=== PATIENT | female | born 1975 | race Caucasian/White ===

== ENCOUNTER → 2022-08-01 13:10 | Outpatient (BNVA) | payer MEDICARE, MEDICAID, SELFPAY | PROVIDERS: Visit Provider Psychiatry & Neurology Psychiatry | DX: F33.9 Major depressive disorder, recurrent, unspecified (principal) | CPT/HCPCS: Q3014 ==

== ENCOUNTER → 2022-10-03 13:51 | Outpatient (BNVA) | payer MEDICARE, MEDICAID, SELFPAY | PROVIDERS: Visit Provider Psychiatry & Neurology Psychiatry | DX: F33.9 Major depressive disorder, recurrent, unspecified (principal); F43.12 Post-traumatic stress disorder, chronic; Z98.84 Bariatric surgery status | CPT/HCPCS: 99212 ==

== ENCOUNTER → 2023-01-07 15:47 | Outpatient (BNVA) | payer MEDICARE, MEDICAID, SELFPAY | PROVIDERS: Visit Provider Psychiatry & Neurology Psychiatry | DX: F43.12 Post-traumatic stress disorder, chronic (principal); F33.9 Major depressive disorder, recurrent, unspecified; Z98.84 Bariatric surgery status | CPT/HCPCS: 90833; Q3014 ==

== ENCOUNTER 2023-02-20 16:43 | Outpatient (AMB) | payer MEDICARE, MEDICAID, SELFPAY ==
--- NOTE | 2023-02-20 16:35 | MHC.OFFVISPS ---
Intake Intake Visit Reasons: depression Allergies No Known Allergies Allergy (Unverified 04/27/20 16:41) Medication List - Last Reconciled 03/02/23 by Wyatt Harmon MD acarbose 100 mg PO TID bupropion HCl 150 mg PO DAILY 90 days buspirone 30 mg PO BID duloxetine 120 mg (2 x 60 mg) PO DAILY esomeprazole magnesium (Nexium) 40 mg PO DAILY glucagon (Glucagon Emergency Kit) 1 mg IM ONCE PRN lamotrigine 150 mg PO BID levothyroxine 137 mcg PO DAILY lorazepam 0.5 mg PO DAILY PRN losartan 25 mg PO DAILY pregabalin 150 mg PO TID quetiapine 12.5 - 25 mg (0.5 - 1 x 25 mg) PO TID PRN sumatriptan succinate mg subcut topiramate 100 mg PO BID HPI- Psychiatric Chief Complaint: depression HPI Narrative: Patient has been increasingly anxious and depressed in relationship to inability to stabilize secondary to reactive hypoglycemia status post surgery. Patient has had multiple hypoglycemic event significantly impacting with her life. She did feel transiently self-harming but states she would not do that ever because of her daughter. She does find Seroquel helpful as needed Rexulti 3 mg Cymbalta 120 Past Psychiatric History: hx recurrent depression anxiety past ect disability past hx of suicide attempts Mental Status Exam Mental Status Exam Patient Appearance: Well Grooomed Patient Orientation: Person, Place, Time and Situation Level of Consciousness: Awake and Appropriate Patient Behavior: Appropriate Mood Description: Depressed, Anxious and Apprehensive Affect Description: Appropriate, Constricted and Apprehensive Patient Cognition Impaired: No Ability to Follow Directions: Good Speech Pattern: Clear Memory Description: Intact Hallucinations: None Delusions: Not Present Thought Process: Intact and Goal Oriented Thought Content: positive for Goal Oriented, positive for Perseveration, positive for Preoccupation and negative for Homicidal Ideation Depressive Symptoms: Increased Anxiety, Increased Irritability, Hopelessness, Unhappiness, Increased Fatigue, Thoughts of /Suicide, Loss of Energy and Difficulty Concentrating Judgement: Fair Judgement and Insight: Denies active SI feels overwhelmed some thoughts of self-harm at times has been using Seroquel p.r.n. which has been helpful patient has other strategies which she knows she needs to resume difficulty given that she cannot drive and often cannot be left alone until this is managed Telehealth Telehealth Location of provider rendering services: practice address Location of patient: address on file Patient Identification confirmed using: Name, : Yes Telehealth method: video Patient verbally consented to treatment: Yes Patient verbally consented to billing insurance company: Yes Minutes spent on Phone/Video with Pt.: 23 Assessment and Plan Assessment & Plan (1) Chronic post-traumatic stress disorder (PTSD): Status: Acute Code(s): F43.12 - Post-traumatic stress disorder, chronic (2) Major depression, recurrent, chronic: Status: Acute Code(s): F33.9 - Major depressive disorder, recurrent, unspecified (3) Status post gastric bypass for obesity: Status: Acute Code(s): Z98.84 - Bariatric surgery status (4) Hypoglycemia after GI (gastrointestinal) surgery: Status: Acute Code(s): K91.2 - Postsurgical malabsorption, not elsewhere classified Plan Lower Wellbutrin given increased anxiety Seroquel p.r.n. added for help with anxiety self-harming impulses patient does have a therapist she has a connect relationship to does have strategies to manage behavior and thoughts we have discussed option of spravato in TMS limited availability on [facility] patient can do PHP remotely if needed might benefit from DBT group patient states she does feel like she has regrouped she is dealing with significant medical side effects severe reactive hypoglycemia status post gastric bypass surgery Medications: Changed From bupropion HCl 150 mg PO BID 90 days 180 tabs 1RF To bupropion HCl 150 mg PO DAILY 90 tabs 1RF 90 days Counseling and coordination of Care Details-Self Mgmt counseling: Extensive discussion regarding strategies Medication management counseling: Effectiveness Details-Med Mgmt counseling: No evidence of oral facial dyskinesia patient aware of tardive dyskinesia risk There was some question of a seizure possibly secondary to hypoglycemia neurologist was not clear we discussed lowering Wellbutrin because of lowered seizure threshold Details: I spent [30] minutes reviewing the record, seeing the patient and documenting in the medical record. Counseling provided to the patient/caregiver as outlined below. Addressed patient/caregiver concerns regarding current medication regime including effective adherence. Addressed patient/caregiver concerns regarding diagnosis and prognosis including accuracy of diagnosis, prognosis over time, impact of diagnosis. Addressed patient/caregiver concerns regarding impact of recent stressors. [facility] Medical History (Updated 03/02/23 @ 19:20 by Wyatt Harmon MD) Chronic post-traumatic stress disorder (PTSD) Surgical History (Updated 10/21/22 @ 22:13 by Wyatt Harmon MD) Status post gastric bypass for obesity Social History: parents 1 b 1 sister mother cancer in january 30 the patient is x1 and she is in her 2nd marriage and lives in [facility]. Her 1st who is the father of her 19-year-old daughter had problems with substance abuse. 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
== END 2023-02-20 17:55 | disposition home or self-care (01) ==
LOC: HO.HOP 16:43
PROVIDERS: Visit Provider Psychiatry & Neurology Psychiatry
DX: F43.12 Post-traumatic stress disorder, chronic (principal); F33.9 Major depressive disorder, recurrent, unspecified; Z98.84 Bariatric surgery status; K91.2 Postsurgical malabsorption, not elsewhere classified
CPT/HCPCS: 99214

== ENCOUNTER → 2023-02-20 16:43 | Outpatient (BNVA) | payer MEDICARE, MEDICAID, SELFPAY | PROVIDERS: Visit Provider Psychiatry & Neurology Psychiatry | DX: F33.9 Major depressive disorder, recurrent, unspecified (principal); F43.12 Post-traumatic stress disorder, chronic; K91.2 Postsurgical malabsorption, not elsewhere classified; Z98.84 Bariatric surgery status | CPT/HCPCS: 99212 ==

== ENCOUNTER 2023-08-29 14:14 | Outpatient (AMB) | payer MEDICARE, MEDICAID, SELFPAY ==
--- NOTE | 2023-08-29 16:55 | MHC.OFFVISPS ---
Intake Intake Visit Reasons: depression Allergies No Known Allergies Allergy (Unverified 04/27/20 16:41) HPI- Psychiatric Chief Complaint: depression HPI Narrative: pt seen in psych f/u telehealth appt mood has been better since being on new medication and having glucose measurements doing well with her daughter needs to be more active and engaged with things no si rexulti 1 mg Past Psychiatric History: hx recurrent depression anxiety past ect disability past hx of suicide attempts Mental Status Exam Mental Status Exam Patient Appearance: Well Grooomed Patient Orientation: Person, Place, Time and Situation Level of Consciousness: Awake and Appropriate Patient Behavior: Appropriate Mood Description: Depressed (mild) and Anxious Affect Description: Appropriate, Constricted and Apprehensive Patient Cognition Impaired: No Ability to Follow Directions: Good Speech Pattern: Clear Memory Description: Intact Hallucinations: None Delusions: Not Present Thought Process: Intact and Goal Oriented Thought Content: positive for Goal Oriented, positive for Perseveration, positive for Preoccupation, negative for Suicidal Ideation or negative for Homicidal Ideation Depressive Symptoms: Increased Anxiety, Loss of Energy and Difficulty Concentrating Judgement: Fair Judgement and Insight: Denies active SI feels overwhelmed some thoughts of self-harm at times has been using Seroquel p.r.n. which has been helpful patient has other strategies which she knows she needs to resume difficulty given that she cannot drive and often cannot be left alone until this is managed Telehealth Telehealth Location of provider rendering services: practice address Location of patient: address on file Patient Identification confirmed using: Name, : Yes Telehealth method: video Patient verbally consented to treatment: Yes Patient verbally consented to billing insurance company: Yes Minutes spent on Phone/Video with Pt.: 20 Assessment and Plan Assessment & Plan (1) Chronic post-traumatic stress disorder (PTSD): Status: Acute Code(s): F43.12 - Post-traumatic stress disorder, chronic (2) Hypoglycemia after GI (gastrointestinal) surgery: Status: Acute Code(s): K91.2 - Postsurgical malabsorption, not elsewhere classified (3) Major depression, recurrent, chronic: Status: Acute Code(s): F33.9 - Major depressive disorder, recurrent, unspecified Plan lower rexulti 1 mg daily cont wellbutrin cymbalta mood improved cont plan of care pt in tx knows to contact this writer technical publications if eeling worse no evidence of movement dx on telehealth Medications: Changed From brexpiprazole 2 mg PO DAILY 90 tabs 1RF To brexpiprazole (Rexulti) 1 mg (1/2 x 2 mg) PO DAILY 90 tabs 1RF Refilled bupropion HCl 150 mg PO BID 180 tabs 1RF 90 days trazodone 50 - 100 mg (0.5 - 1 x 100 mg) PO BEDTIME PRN 90 tabs 0RF sleep Discontinued quetiapine Discontinued Reason: Doctor's Order 12.5 - 25 mg (0.5 - 1 x 25 mg) PO TID PRN 60 tabs 1RF anxiety Counseling and coordination of Care Details: I spent [] minutes reviewing the record, seeing the patient and documenting in the medical record. Counseling provided to the patient/caregiver as outlined below. Addressed patient/caregiver concerns regarding current medication regime including effective adherence. Addressed patient/caregiver concerns regarding diagnosis and prognosis including accuracy of diagnosis, prognosis over time, impact of diagnosis. Addressed patient/caregiver concerns regarding impact of recent stressors. [facility] Medical History (Updated 03/02/23 @ 19:20 by Wyatt Harmon MD) Chronic post-traumatic stress disorder (PTSD) Surgical History (Updated 10/21/22 @ 22:13 by Wyatt Harmon MD) Status post gastric bypass for obesity Social History: parents 1 b 1 sister mother cancer in january 30 the patient is x1 and she is in her 2nd marriage and lives in [facility]. Her 1st who is the father of her 19-year-old daughter had problems with substance abuse. Patient grew up in a well to do family but had always felt like the odd ball out at a past history of past self-harming behavior and suicide attempts past history of ECT Substance History: sober from marijuana Trauma History: pos Coding Level of Care Code Tele Est Pt Level 3 (81839) Diagnoses Chronic post-traumatic stress disorder (PTSD) F43.12 Hypoglycemia after GI (gastrointestinal) surgery K91.2 Major depression, recurrent, chronic F33.9
== END 2023-08-29 14:54 | disposition home or self-care (01) ==
LOC: HO.HOP 14:14
PROVIDERS: Visit Provider Psychiatry & Neurology Psychiatry
DX: F33.0 Major depressive disorder, recurrent, mild (principal); F43.12 Post-traumatic stress disorder, chronic; K91.2 Postsurgical malabsorption, not elsewhere classified
CPT/HCPCS: 99213

== ENCOUNTER → 2023-08-29 14:14 | Outpatient (BNVA) | payer MEDICARE, MEDICAID, SELFPAY | PROVIDERS: Visit Provider Psychiatry & Neurology Psychiatry ==

== ENCOUNTER 2023-12-09 14:32 | Outpatient (AMB) | payer MEDICARE, SELFPAY ==
--- NOTE | 2023-12-09 14:43 | A.OFFPSYCH_ITS ---
Intake Intake Visit Reasons: depression Allergies No Known Allergies Allergy (Unverified 04/27/20 16:41) Medication List - Last Reconciled 12/09/23 by Wyatt Harmon MD acarbose 100 mg PO TID brexpiprazole (Rexulti) 1 mg (1/2 x 2 mg) PO DAILY bupropion HCl SR 150 mg PO BID 90 days buspirone 30 mg PO BID duloxetine 120 mg (2 x 60 mg) PO DAILY esomeprazole magnesium (Nexium) 40 mg PO DAILY glucagon (Glucagon Emergency Kit) 1 mg IM ONCE PRN lamotrigine 150 mg PO BID levothyroxine 137 mcg PO DAILY lorazepam 0.5 mg PO DAILY PRN losartan 25 mg PO DAILY pregabalin 150 mg PO TID sumatriptan succinate mg subcut topiramate 100 mg PO BID trazodone 50 - 100 mg (0.5 - 1 x 100 mg) PO BEDTIME PRN HPI- Psychiatric Chief Complaint: depression HPI Narrative: Patient seen psychiatric follow-up telehealth appointment. Patient doing better with hypoglycemia she now has a continuous monitor. She new medication for this and is doing well with this. She is dealing with chronic pain some degree of lethargy and fatigue. Not overly depressed denies noticing any abnormal movements on observation as she is only seen on Telehealth. She is on Rexulti Cymbalta BuSpar Wellbutrin. No complaints of side effects she is sober from marijuana use for 2 years and was active in sobriety meetings Past Psychiatric History: hx recurrent depression anxiety past ect disability past hx of suicide attempts Mental Status Exam Mental Status Exam Patient Appearance: Well Grooomed Patient Orientation: Person, Place, Time and Situation Level of Consciousness: Awake and Appropriate Patient Behavior: Appropriate Mood Description: Depressed (mild) and Anxious Affect Description: Appropriate, Constricted and Apprehensive Patient Cognition Impaired: No Ability to Follow Directions: Good Speech Pattern: Clear Memory Description: Intact Hallucinations: None Delusions: Not Present Thought Process: Intact and Goal Oriented Thought Content: positive for Goal Oriented, positive for Perseveration, positive for Preoccupation, negative for Suicidal Ideation or negative for Homicidal Ideation Depressive Symptoms: Increased Anxiety, Loss of Energy and Difficulty Concentrating Judgement: Good Judgement and Insight: Patient doing somewhat better than when last seen no SI daughter is doing well future oriented no abnormal movements noted on Telehealth exam Telehealth Telehealth Location of provider rendering services: practice address Location of patient: address on file Patient Identification confirmed using: Name, : Yes Telehealth method: video Patient verbally consented to treatment: Yes Patient verbally consented to billing insurance company: Yes Minutes spent on Phone/Video with Pt.: 20 Assessment and Plan Assessment & Plan (1) Chronic post-traumatic stress disorder (PTSD): Status: Acute Code(s): F43.12 - Post-traumatic stress disorder, chronic (2) Major depression, recurrent, chronic: Status: Acute Code(s): F33.9 - Major depressive disorder, recurrent, unspecified Plan Consideration could be given to the use of modafinil otherwise continue Rexulti BuSpar Cymbalta Wellbutrin. Patient with history of treatment resistant depression has had ECT in the past might benefit from TMS however where she lives in and talk it there is no way to easily arrange would not be practical Counseling and coordination of Care Pt. Self Management counseling: Behavior activation Medication management counseling: Effectiveness and Side effects Diagnosis and Prognosis Counseling: Adequacy of current interventions Details-Diagnosis/Prognosis counseling: Encouraged daily walk light exposure Details: I spent [] minutes reviewing the record, seeing the patient and documenting in the medical record. Counseling provided to the patient/caregiver as outlined below. Addressed patient/caregiver concerns regarding current medication regime including effective adherence. Addressed patient/caregiver concerns regarding diagnosis and prognosis including accuracy of diagnosis, prognosis over time, impact of diagnosis. Addressed patient/caregiver concerns regarding impact of recent stressors. [facility] Medical History (Updated 03/02/23 @ 19:20 by Wyatt Harmon MD) Chronic post-traumatic stress disorder (PTSD) Surgical History (Updated 10/21/22 @ 22:13 by Wyatt Harmon MD) Status post gastric bypass for obesity Social History: parents 1 b 1 sister mother cancer in january 30 the patient is x1 and she is in her 2nd marriage and lives in [facility]. Her 1st who is the father of her 19-year-old daughter had problems with substance abuse. 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
== END 2023-12-09 14:32 | disposition home or self-care (01) ==
LOC: HO.HOP 14:32
PROVIDERS: Visit Provider Psychiatry & Neurology Psychiatry
DX: F33.1 Major depressive disorder, recurrent, moderate (principal); F43.12 Post-traumatic stress disorder, chronic
CPT/HCPCS: 99214

== ENCOUNTER → 2023-12-09 14:32 | Outpatient (BNVA) | payer MEDICARE, MEDICAID, SELFPAY | PROVIDERS: Visit Provider Psychiatry & Neurology Psychiatry ==

== ENCOUNTER 2024-01-30 18:01 | Outpatient (AMB) | payer MEDICARE, MEDICAID, SELFPAY ==
--- NOTE | 2024-01-30 16:12 | MHC.OFFVISPS ---
Intake Intake Visit Reasons: depression Allergies No Known Allergies Allergy (Unverified 04/27/20 16:41) HPI- Psychiatric Chief Complaint: depression HPI Narrative: Patient is a 48-year-old female history of recurrent depression has been worsening recently limited by issues related to pain and disability which has been a recurrent issue for her. She is in psychotherapy on [place] had has been seen in continuation psychiatry through telehealth. 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 Past Psychiatric History: hx recurrent depression anxiety past ect disability past hx of suicide attempts Mental Status Exam Mental Status Exam Patient Appearance: Well Grooomed Patient Orientation: Person, Place, Time and Situation Level of Consciousness: Awake and Appropriate Patient Behavior: Appropriate Mood Description: Depressed and Anxious Affect Description: Appropriate, Constricted and Apprehensive Patient Cognition Impaired: No Ability to Follow Directions: Good Speech Pattern: Clear Memory Description: Intact Hallucinations: None Delusions: Not Present Thought Process: Intact and Goal Oriented Thought Content: positive for Goal Oriented, positive for Perseveration, positive for Preoccupation, negative for Suicidal Ideation or negative for Homicidal Ideation Depressive Symptoms: Increased Anxiety, Loss of Energy and Difficulty Concentrating Judgement: Good Judgement and Insight: Patiient was having a hard time states future oriented had has had transient self-harming thoughts but has not acted on these and feels safe Assessment and Plan Assessment & Plan (1) Chronic post-traumatic stress disorder (PTSD): Status: Acute Code(s): F43.12 - Post-traumatic stress disorder, chronic (2) Major depression, recurrent, chronic: Status: Acute Code(s): F33.9 - Major depressive disorder, recurrent, unspecified Plan Patient states she is able to maintain her safety feels like she needs to be more active and engaged in the community has felt overwhelmed with physical pain in the amount of time it takes to get appointments and traveled to appointment states she can maintain herself I did discuss option perhaps of partial hospital she did not feel she needed partial hospital or inpatient Medications: Refilled lorazepam 0.5 mg PO DAILY PRN 5 tabs 0RF anxiety Counseling and coordination of Care Pt. Self Management counseling: Med illness tx adherence Details-Self Mgmt counseling: Issues related to safety question need for more intensive counseling or other structure patient states able to maintain her safety Diagnosis and Prognosis Counseling: Adequacy of current interventions Details: I spent [16] minutes reviewing the record, seeing the patient and documenting in the medical record. Counseling provided to the patient/caregiver as outlined below. Addressed patient/caregiver concerns regarding current medication regime including effective adherence. Addressed patient/caregiver concerns regarding diagnosis and prognosis including accuracy of diagnosis, prognosis over time, impact of diagnosis. Addressed patient/caregiver concerns regarding impact of recent stressors. [facility] Medical History (Updated 03/02/23 @ 19:20 by Wyatt Harmon MD) Chronic post-traumatic stress disorder (PTSD) Surgical History (Updated 10/21/22 @ 22:13 by Wyatt Harmon MD) Status post gastric bypass for obesity Social History: parents 1 b 1 sister mother cancer in january 30 the patient is x1 and she is in her 2nd marriage and lives in [facility]. Her 1st who is the father of her 19-year-old daughter had problems with substance abuse. 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
== END 2024-01-30 18:01 | disposition home or self-care (01) ==
LOC: HO.HOP 18:01
PROVIDERS: Visit Provider Psychiatry & Neurology Psychiatry
DX: F33.1 Major depressive disorder, recurrent, moderate (principal); F43.12 Post-traumatic stress disorder, chronic
CPT/HCPCS: 99213

== ENCOUNTER → 2024-01-30 18:01 | Outpatient (BNVA) | payer MEDICARE, MEDICAID, SELFPAY | PROVIDERS: Visit Provider Psychiatry & Neurology Psychiatry | DX: F33.1 Major depressive disorder, recurrent, moderate (principal); F43.12 Post-traumatic stress disorder, chronic | CPT/HCPCS: 99212 ==

== ENCOUNTER 2024-02-13 17:58 | Outpatient (AMB) | payer MEDICARE, MEDICAID, SELFPAY ==
--- NOTE | 2024-02-13 13:43 | A.OFFPSYCH_ITS ---
Intake Intake Visit Reasons: depression Allergies No Known Allergies Allergy (Unverified 04/27/20 16:41) HPI- Psychiatric Chief Complaint: depression HPI Narrative: Patient states she is feeling somewhat better the people she is working on and talk at her asking her to see someone locally and this make sense. She denies active SI feeling like she has regrouped to some significant degree Past Psychiatric History: hx recurrent depression anxiety past ect disability past hx of suicide attempts Mental Status Exam Mental Status Exam Patient Appearance: Well Grooomed Patient Orientation: Person, Place, Time and Situation Level of Consciousness: Awake and Appropriate Patient Behavior: Appropriate Mood Description: Depressed and Anxious Affect Description: Appropriate, Constricted and Apprehensive Patient Cognition Impaired: No Ability to Follow Directions: Good Speech Pattern: Clear Memory Description: Intact Hallucinations: None Delusions: Not Present Thought Process: Intact and Goal Oriented Thought Content: positive for Goal Oriented, positive for Perseveration, positive for Preoccupation, negative for Suicidal Ideation or negative for Homicidal Ideation Depressive Symptoms: Increased Anxiety, Loss of Energy and Difficulty Concentrating Judgement: Good Judgement and Insight: pt states she can maintain her safety feels supported Telehealth Telehealth Telehealth Platform: [employer] Location of provider rendering services: practice address Location of patient: address on file Patient Identification confirmed using: Name, : Yes Telehealth method: video Patient verbally consented to treatment: Yes Patient verbally consented to billing insurance company: Yes Minutes spent on Phone/Video with Pt.: 15 Assessment and Plan Assessment & Plan (1) Chronic post-traumatic stress disorder (PTSD): Status: Acute Code(s): F43.12 - Post-traumatic stress disorder, chronic (2) Major depression, recurrent, chronic: Status: Acute Code(s): F33.9 - Major depressive disorder, recurrent, unspecified Plan Patient will transition to care and [place] available for consultation no change in medication at this time no oral facial dyskinesia or other adverse effects noted patient had ECT past spravato a TMS not available Counseling and coordination of Care Diagnosis and Prognosis Counseling: Problematic behaviors secondary to diagnosis and Adequacy of current interventions Details: I spent [] minutes reviewing the record, seeing the patient and documenting in the medical record. Counseling provided to the patient/caregiver as outlined below. Addressed patient/caregiver concerns regarding current medication regime including effective adherence. Addressed patient/caregiver concerns regarding diagnosis and prognosis including accuracy of diagnosis, prognosis over time, impact of diagnosis. Addressed patient/caregiver concerns regarding impact of recent stressors. [facility] Medical History (Updated 03/02/23 @ 19:20 by Wyatt Harmon MD) Chronic post-traumatic stress disorder (PTSD) Surgical History (Updated 10/21/22 @ 22:13 by Wyatt Harmon MD) Status post gastric bypass for obesity Social History: parents 1 b 1 sister mother cancer in january 30 the patient is x1 and she is in her 2nd marriage and lives in [facility]. Her 1st who is the father of her 19-year-old daughter had problems with substance abuse. 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
== END 2024-02-13 17:59 | disposition home or self-care (01) ==
LOC: HO.HOP 17:59
PROVIDERS: Visit Provider Psychiatry & Neurology Psychiatry
DX: F43.12 Post-traumatic stress disorder, chronic (principal); F33.9 Major depressive disorder, recurrent, unspecified
CPT/HCPCS: 99213

== ENCOUNTER → 2024-02-13 17:58 | Outpatient (BNVA) | payer MEDICARE, MEDICAID, SELFPAY | PROVIDERS: Visit Provider Psychiatry & Neurology Psychiatry ==